=== PATIENT | male | born 1955 | race Caucasian/White ===

== ENCOUNTER → 2020-03-04 | Day surgery (SDC) | payer BC ==
[~2020-03-04] VITALS: Ht 190.5 cm; Wt 102.1 kg
[~2020-03-04] MED LIST: ALLEGRA-D 12 H1 EAC1 PO; ALLOPURINOL 30300 M1 PO; LIPITOR 40 MG T40 M1 PO; LOSARTAN POTASS50 MG PO; NASACORT10.8 ML NASAL
--- NOTE | ~2020-03-04 | O ---
[facility] [address] [facility] [place] [address] OPERATIVE REPORT Name: SOLOMON COOL Room #: REG [facility].#: [id number] Admission: 03/04/20 Attend Phys: Panda Reynoso Discharge: Date of : 55 Report #: [id number] THIS REPORT FOR: cc: Mike Kennedy,Panda Colbert MD ~ CC: Panda Kennedy PREOPERATIVE DIAGNOSES: Right shoulder pain, rotator cuff tear, acromioclavicular joint osteoarthritis, impingement syndrome, biceps tendinopathy and subluxation. POSTOPERATIVE DIAGNOSES: Right shoulder rotator cuff tear of the subscapularis, complex labral tear, intraarticular synovitis, partial thickness tear of the biceps tendon with subluxation, subacromial bursitis with impingement syndrome, acromioclavicular joint arthrosis. PROCEDURE PERFORMED: Right shoulder arthroscopy, rotator cuff repair of the subscapularis, subacromial decompression, excision of distal clavicle, arthroscopic biceps tenodesis, extensive debridement. SURGEON: Panda Simmons MD RACING SECRETARY: Kavya Leon PA-C. ANESTHESIA: General with preoperative ultrasound-guided interscalene block. FLUIDS: 800 mL of crystalloid. ESTIMATED BLOOD LOSS: Less than 5 mL. DESCRIPTION OF PROCEDURE: After proper identification of the patient and operative site in preoperative holding area, the operative site was signed by myself. Prophylactic antibiotics given. The patient elected to receive an ultrasound-guided block after reviewing the risks, benefits, alternatives and potential complications with Anesthesia. After a satisfactory block, the patient was brought back to the operative suite after induction of satisfactory general anesthesia per endotracheal tube. The right shoulder was carefully examined. It was stable throughout a full arc of motion. He was carefully positioned in the left lateral decubitus position. Clemente bag and axillary roll were utilized to support the torso. The right shoulder was sterilely prepped and draped in the usual manner and placed in 10 pounds of balanced arthroscopic suspension. Posterior portal was established, joint was inflated with an arthroscopic pump set at 40 mmHg. Anterior superior portal was created using a spinal needle for localization. Examination of the glenohumeral joint revealed intra-articular synovitis, most pronounced within the rotator interval. [address] [address] OPERATIVE REPORT Name: COOLSOLOMON Yusef Room #: REG [facility] [place] Alexandra.#: [id number] Admission: 03/04/20 Attend Phys: Panda Reynoso Discharge: Date of : 55 Report #: [id number] labral fraying of the anterior superior labrum was noted. Long head of the biceps tendon demonstrated medial subluxation into the tear of the upper border of the subscapularis, partial thickness tearing of the biceps was also noted. The more inferior aspect of the subscapularis was intact and the subscapularis was amenable to repair. An additional anterior inferior portal was created. The synovitis was cleared with a motorized shaver. There was some mild fraying of the chondral surface of the superior humeral head that was partial thickness in nature. The lesser tuberosity was prepared with a combination of hand and motorized instrumentation. Tendon grasping stitch was placed on the biceps. It was released off the superior labrum and this area was carefully debrided as well. The more inferior labrum and posterior labrum were otherwise intact. Examination of the articular side of the rotator cuff revealed some mild uncovering of the footprint of a few millimeters of the more anterior supraspinatus. There were minimal articular-sided changes here and the remainder of the cuff was intact. A FiberTape was passed through the upper rolled border of the subscapularis and secured to the prepared lesser tuberosity area using an Arthrex 4.75 mm SwiveLock anchor. This nicely reduced of the subscapularis for repair. At this point, the arthroscope was introduced into the subacromial space. Lateral portion of the bicipital groove was opened. Biceps tendon was delivered out an anterolateral portal. Whipstitch was applied and then the more proximal portion of the tendon was excised. This was tenodesed to the bicipital groove using an Arthrex proximal biceps tenodesis button. Button was delivered past the near cortex, toggled and was secured. Next, the biceps tendon was tensioned within the groove and tied with alternating half hitches. It was secured to probing following its tenodesis. There was fraying on the undersurface of the coracoacromial arch and mild prominence to the acromion was noted. Subacromial decompression was performed using a motorized bur where approximately 3 mm of bone was removed off the anterolateral edge, acromioclavicular joint arthrosis was noted with subchondral cystic changes present. Distal clavicle excision was performed. Care was taken to preserve the superior capsular structures. A grasper could be opened 10 mm within the joint space, demonstrating a satisfactory decompression from the bursal surface, the rotator cuff was intact and stable to palpation. There were no significant tears noted from the bursal surface and the remainder of the rotator cuff was intact. Subacromial space thoroughly irrigated with normal saline. Portals closed with simple nylon stitch. The patient will be placed in a sling and abduction pillow for 6 weeks postoperatively with no external rotation beyond neutral for the first 4 weeks. A qualified assistant professor of spanish utilized throughout the entire procedure to aid in patient limb positioning, visualization with the arthroscope instrument and suture passage as well as closure and sling application. By: [id number] Panda Simmons MD /nt
[2020-03-04 09:49] VITALS: BP 152/79
[2020-03-04 12:04] VITALS: BP 152/79
== END | disposition home or self-care (01) ==
LOC: OR 08:25
PROVIDERS: ATTEND Orthopaedic Surgery Sports Medicine
DX: M25.511 Pain in right shoulder (principal); M19.011 Primary osteoarthritis, right shoulder; M75.101 Unspecified rotator cuff tear or rupture of right shoulder, not specified as traumatic; S46.211A Strain of muscle, fascia and tendon of other parts of biceps, right arm, initial encounter; S43.401A Unspecified sprain of right shoulder joint, initial encounter; M75.51 Bursitis of right shoulder; M75.41 Impingement syndrome of right shoulder; M65.811 Other synovitis and tenosynovitis, right shoulder; I10 Essential (primary) hypertension; E78.5 Hyperlipidemia, unspecified; Z11.59 Encounter for screening for other viral diseases; Z98.890 Other specified postprocedural states; Z79.899 Other long term (current) drug therapy; Z85.828 Personal history of other malignant neoplasm of skin; Z87.442 Personal history of urinary calculi; Z96.651 Presence of right artificial knee joint; Z88.0 Allergy status to penicillin; X58.XXXA Exposure to other specified factors, initial encounter; Y93.89 Activity, other specified; Y92.89 Other specified places as the place of occurrence of the external cause; Y99.8 Other external cause status
CPT/HCPCS: 50010; 50101; 50172; 50386; 50417; 51320; 51847; 52001; 52313; 53610; 56527; 56530; 57103; 57418; 57420; 58107; 62110; 62900; 65060; 65131; 70005